=== PATIENT | male | born 1990 | race Caucasian/White ===

== ENCOUNTER → 2021-04-26 10:55 | Outpatient (CLI) | payer OTHER, SELFPAY | PROVIDERS: PCP Family Medicine; Visit Provider Family Medicine | DX: R06.81 Apnea, not elsewhere classified (principal); R06.83 Snoring; G47.19 Other hypersomnia; Z68.31 Body mass index [BMI] 31.0-31.9, adult | CPT/HCPCS: 95806 ==

== ENCOUNTER → 2021-05-13 14:24 | Outpatient (CLI) | payer OTHER, SELFPAY | PROVIDERS: Visit Provider Internal Medicine Gastroenterology | DX: Z01.812 Encounter for preprocedural laboratory examination (principal); Z20.822 Contact with and (suspected) exposure to COVID-19; Z13.810 Encounter for screening for upper gastrointestinal disorder | CPT/HCPCS: C9803; U0003; U0005 ==

== ENCOUNTER 2021-05-16 10:13 | Day surgery (SDC) | payer OTHER, SELFPAY ==
[2021-05-13 12:38] VITALS: BMI 30.5
[2021-05-16 10:33] VITALS: BP 143/97; PULSE 79; RESP 18; TEMP 36.7; O2SAT 97
--- NOTE | 2021-05-16 10:47 | P.PN_ITS ---
[facility] Anesthesia Checklist - Patient Identification Patient Identification: Verbal (Name & ) - Structural Data Admitted From: Home Planned Operative Procedure/s: EGD Consent for Planned Operative Procedure(s) Verified: Yes Verified Documents: Surgical Consent - NPO Status Verified Time NPO: 00:00 - Chart Verification Results Verified: None - Anesthesia Plan Anesthesia Risk discussed: Yes ASA Class: II Anesthesia Type: General [facility] History Medical History: Reports:: Gastroesophageal Reflux Disease(GERD) Denies:: Cancer, Diabetes Mellitus Type 1, Diabetes Mellitus Type 2, MRSA, Seizures *Have you ever received a pneumonia vaccine?: No *Have you received a flu vaccine this season?: No Other Medical History: Reports: Other Anesthesia experience/problems:: No issues Other Surgeries: Yes: No Previous Surgery Amputation: No - *Social History Last grade of school completed: Some college Smoking Status: Current every day smoker Tobacco Type: cigarettes Alcohol Intake: current Alcohol Intake Frequency:: holidays/special occasions only Substance Use Type: denies use *Occupational Status:: employed Housing: house Household Members: spouse, children *Travel in the last 8 weeks: None Family Hx:: Cancer
--- NOTE | 2021-05-16 12:36 | P.PCN_ITS ---
[facility] Procedure Note Procedure Note:: Upper Endoscopy Procedure Report: Esophagogastroduodenoscopy with cold biopsies and TTS balloon dilation Endoscopost: Juan C Frazier II, MD Referring Physician: Farheen Chavez MD Date of Procedure: May 16, 2021 Equipment: Olympus GIF 190 standard upper endoscope Sedation: MAC sedation Indications: Mr. Sandoval is a 30-year-old gentleman with intractable heartburn and reflux. If he misses 1 dose of omeprazole 40 mg by mouth daily, he will have more severe symptoms. He has had dyspepsia with epigastric abdominal discomfort as well as chest pain. He reports some bloating and early satiety. He has some gassiness and minor belching. He reports normal bowel function. He has had no cardiac evaluation. He does have some dysphagia to solids. He does smoke tobacco and is trying to quit. Procedure: Prior to the procedure, a history and physical exam was performed, and patient's medications and allergies were reviewed. The risks, benefits and alternatives of the sedation and procedure were discussed with the patient. All questions were answered and informed consent was obtained. The patient was brought to the procedure room. Patient identification and proposed procedure were verified by the physician and the nurse. The patient was placed in a left lateral decubitus position and the scope was passed under direct vision. Throughout the procedure, the patient's blood pressure, pulse, and oxygen saturations were monitored continuously. The upper GI endoscopy was accomplished without difficulty. The patient tolerated the procedure well. Findings: The scope was passed directly into the upper esophagus and advanced to the third portion of the duodenum. The post bulbar duodenum and duodenal bulb were normal with normal mucosa and conniventes. There was mild duodenal lymphoid stasis. The scope was withdrawn through a normal duodenal bulb and pylorus into the stomach. There was bile reflux with mild linear reactive gastropathy of the antrum and body. The remainder of the fundus of the stomach was grossly normal. Upon retroflexion there was no hiatal hernia. 2 biopsies were taken in the antrum and along the lesser curvature for histology to rule out gastritis and/or H pylori. The scope was then withdrawn into the esophagus. There was a serrated Z-line but no evidence of reflux esophagitis or Perez's. There was no Schatzki's ring. There were tertiary contractions and evidence of moderate esophageal dysmotility. The entire esophagus was dilated to 60 Croatian/20 mm with a TTS hydrostatic balloon. There was some resistance at the cricopharyngeus (i.e. cricopharyngeal spasm). The remainder of the esophageal mucosa was normal. Impression: 1. Cricopharyngeal spasm status post dilation to 20 mm 2. Nonerosive GERD with moderate esophageal dysmotility 3. Bile reflux with mild linear reactive gastropathy Plan: I will follow-up the biopsies. I do feel that the patient has functional dyspepsia and functional GERD with esophageal dyskinesia (esophageal spasm). I do feel that this is driven by gas pressure gradients. We will discuss additi onal dietary measures and treatment options.
[2021-05-16 12:39] VITALS: BP 165/78; PULSE 95; RESP 18; TEMP 36.2; O2SAT 96
[2021-05-16 12:49] VITALS: BP 129/91; PULSE 94; RESP 18; O2SAT 96
[2021-05-16 12:59] VITALS: BP 153/84; PULSE 90; RESP 18; O2SAT 96
[2021-05-16 13:09] VITALS: BP 126/78; PULSE 84; RESP 16; TEMP 36.6; O2SAT 97
[2021-05-16 14:02] VITALS: O2SAT 97
== END 2021-05-16 13:10 | disposition home or self-care (01) ==
LOC: OUTP 10:16
PROVIDERS: PCP Family Medicine; Visit Provider Internal Medicine Gastroenterology
PROC: 0DJ08ZZ Inspection of Upper Intestinal Tract, Via Natural or Artificial Opening Endoscopic (ICD-10-PCS; CPT 43235; principal; 2021-05-16 11:30)
DX: K30 Functional dyspepsia (principal); K21.9 Gastro-esophageal reflux disease without esophagitis; J39.2 Other diseases of pharynx; K22.4 Dyskinesia of esophagus; K31.9 Disease of stomach and duodenum, unspecified; Z72.0 Tobacco use; Z80.9 Family history of malignant neoplasm, unspecified
CPT/HCPCS: 43239; 43249; C1726; J2704

== ENCOUNTER 2022-11-21 09:08 | Emergency (ER) | payer OTHER, SELFPAY ==
[2022-11-21] VITALS (9 sets, daily range): BP systolic 109–135; BP diastolic 76–91; PULSE 72–96; RESP 15–19; TEMP 36.7–36.9; O2SAT 95–98; BMI 29.5
--- NOTE | 2022-11-21 09:08 | ECG_ITS ---
APPROVED REPORT Exam: Resting ECG HR:93 bpm ECG Measurements Heart Rate 93 AXES ND 149 P 37 QRSd 105 QRS 35 QT 353 T 2 QTc 404 Conclusion SINUS RHYTHM NONSPECIFIC T-WAVE ABNORMALITY BORDERLINE ECG UNCONFIRMED REPORT Electronically signed by : Kushal Benito MD 11/22/2022 01:41:52
--- NOTE | 2022-11-21 09:11 | XR_ITS ---
FINAL REPORT CLINICAL HISTORY: chest pain and SOA FINDINGS: PA and lateral views of the chest are obtained. There is no prior exam for comparison. The cardiac and mediastinal silhouettes are within normal limits. The lungs are clear. There is no pleural effusion, pneumothorax. There is an age indeterminate T12 compression fracture. IMPRESSION: No radiographic evidence of acute cardiac or pulmonary disease. Reviewed, Interpreted and Dictated by Angelita Webster MD Transcribed by Amrita Saucedo Authenticated and [facility]
--- NOTE | 2022-11-21 09:21 | HMH.EDGENADL ---
Discharge Plan Disposition Patient Disposition: Home, Self-Care Condition: Good Prescriptions Prescriptions: No Action fexofenadine [Maryellen Allergy] 60 mg tablet 60 mg PO BID ipratropium bromide 21 mcg (0.03 %) spray,non-aerosol 2 spray intranasal BID albuterol sulfate 90 mcg/actuation HFA aerosol inhaler 2 puff inhalation PRN azelastine 137 mcg (0.1 %) aerosol,spray 1 spray INTRANASAL BID fluticasone propionate 50 mcg/actuation spray,suspension 1 spray INTRANASAL BID omeprazole 40 mg capsule,delayed release(DR/EC) 40 mg PO DAILY Referrals Follow up/Referrals: Julieta Vasquez APRN [Nurse Practitioner] - See instructions Jose L Wilkinson MD [Staff Physician] - See instructions Provider,MD Tevin [Primary Care Provider] - See instructions Activity Restrictions/Add. Instructions Additional Instructions/Restrictions: Additional instructions for CHEST PAIN: See cardiology, Dr. Wilkinson, as soon as possible for further evaluation. Call for appointment. Return immediately if worsening chest pain, vomiting, shortness of breath, fever, coughing of blood. Follow-up with Julieta Vasquez for behavioral medicine evaluation Clinical Impressions Clinical Impression: Chest pain, Acute dyspnea Instructions Patient Instructions: DI for Shortness of Breath, DI for Chest Pain Discharge ED Provider: Jon Alfonso General Adult HPI General Chief complaint: Chest Pain Stated complaint: chest pain Time Seen by Provider: 11/21/22 09:54 Mode of Arrival: Ambulatory Source of Information: Patient Limitations: No Limitations Description of Symptoms (Recalled from ER Triage Doc. by RN): pt presents to ED c/o chest paint that has been intermittent x 1 week. pt denies the pain radiating. pt reports SOA. History of Present Illness HPI narrative: Patient's chief complaint to me is that he is having problems breathing. States that for the past week he has dyspnea, particular with exertion. Usually lasts about 15 minutes. Associated with a vague discomfort in his left upper anterior chest without radiation. States he cannot tell whether he gets sweaty with the episodes because he is already sweating at work when the episodes occur. He has felt nauseated a couple of times. He says he thinks his symptoms might be related to depression and anxiety and would like a referral for evaluation for that as well He does not have any known cardiac conditions. He does not have hypertension, diabetes, or hyperlipidemia. No known family history of heart disease. He is a smoker. He has sleep apnea and uses CPAP at night. No prior cardiac work-up. Related Data Home Medications Medication Instructions Recorded Confirmed azelastine 137 mcg (0.1 %) nasal 1 spray intranasal BID allergies 04/26/21 08/31/22 spray aerosol fluticasone propionate 50 1 spray intranasal BID allergies 04/26/21 08/31/22 mcg/actuation nasal spray,suspension omeprazole 40 mg capsule,delayed 40 mg PO DAILY GERD 04/26/21 08/31/22 release fexofenadine 60 mg tablet (Maryellen 60 mg PO BID allergies 05/11/21 08/31/22 Allergy) albuterol sulfate 90 mcg/actuation 2 puff inhalation PRN 07/24/22 08/31/22 aerosol inhaler ipratropium bromide 21 mcg (0.03 2 spray intranasal BID 07/24/22 08/31/22 %) nasal spray Allergies Allergy/AdvReac Type Severity Reaction Status Date / Time No Known Allergies Allergy Verified 08/31/22 09:21 [facility] Disclaimer: The information contained in this section may have been updated after the patient was seen, as this information can be updated by other users. 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
--- NOTE | 2022-11-21 09:30 | PC.NURSE ---
pt going to radiology at this time.
[2022-11-21 09:31] LABS: Basophils # 0.1 K/mm3 (0-0.2); Basophils % 1.7 % (0.1-2.0); Eosinophils # 0.2 K/mm3 (0.0-0.4); Eosinophils % 2.6 % (0.1-12.0); Hematocrit 50.8 % (42.0-52.0); Hemoglobin 17.1 g/dL (14.1-18.0); Lymphocytes # 2.2 K/mm3 (0.7-4.5); Lymphocytes % 30.1 % (10-50); Mean Corpuscular HGB Conc 33.7 g/dL (31.8-35.4); Mean Corpuscular Hemoglobin 29.6 pg (27.0-31.2); Mean Corpuscular Volume 87.9 fl (80-94); Mean Platelet Volume 6.9 fl (7.4-10.4); Monocytes # 0.5 K/mm3 (0.1-1.0); Monocytes % 6.5 % (1.7-9.3); Neutrophils # 4.3 K/mm3 (1.8-7.8); Neutrophils % 59.1 % (37.0-80.0); Platelet Count 291 K/mm3 (142-424); Red Blood Count 5.78 M/mm3 (4.60-6.20); Red Cell Distribution Width 13.2 % (11.5-17.5); White Blood Count 7.3 K/mm3 (4.8-10.8)
--- NOTE | 2022-11-21 09:34 | PC.NURSE ---
pt back to room from radiology
[2022-11-21 09:44] LABS: Alanine Aminotransferase 39 U/L (12-78); Albumin Level 4.8 g/dl (3.5-5.0); Albumin/Globulin Ratio 1.7 (1.1-1.8); Alkaline Phosphatase 69 U/L (38-126); Anion Gap 12.9 mEq/L (5-15); Aspartate Amino Transferase 32 U/L (17-59); Bilirubin,Total 0.8 mg/dl (0.2-1.3); Blood Urea Nitrogen 16 mg/dl (9-20); Carbon Dioxide 27 mmol/L (22.0-30.0); Chloride 103 mmol/L (98-107); Creatinine Clearance Estimated 134 mL/min (50-200); Estimated Glomerular Filt Rate 86 ml/min (>60); GFR (African American) 103 ML/MIN (>60); Globulin 2.8 g/dL (1.3-3.2); Glucose 109 mg/dl (74-100); Potassium 3.9 mmoL/L (3.5-5.1); Sodium 139 mmol/L (136-145); Total Protein,Serum 7.6 g/dl (6.3-8.2)
[2022-11-21 09:56] LABS: Troponin I < 0.01 ng/ml (0.00-0.034)
--- NOTE | 2022-11-21 10:02 | PC.NURSE ---
Notified lab of D-Dimer add on, spoke to Kenneth
[2022-11-21 10:14] LABS: D-Dimer 0.65 ug/mL (0.0-0.5)
--- NOTE | 2022-11-21 10:15 | PC.NURSE ---
rounded and updated on POC.
--- NOTE | 2022-11-21 10:24 | CT_ITS ---
FINAL REPORT TECHNIQUE: Axial imaging of the chest is obtained after the administration of contrast. 3-D MIP reformatted images were also obtained and reviewed per PE protocol. CLINICAL HISTORY: soa, elev d-dimer FINDINGS: The pulmonary arteries are well filled. There is no evidence of pulmonary embolus. There is no aortic dissection or intimal flap. There is no mediastinal, hilar, or axillary lymphadenopathy. There is evidence of old granulomatous disease. The lungs are otherwise clear. There is no pleural or pericardial effusion. Limited evaluation of the upper abdomen is without acute abnormality. There is no acute osseous abnormality. IMPRESSION: No evidence of pulmonary embolism or aortic dissection. Reviewed, Interpreted and Dictated by Angelita Webster MD Transcribed by Mario Rosenberg Authenticated and [facility]
[2022-11-21 10:55] LABS: NT Pro Brain Natriuretic Pep. < 11.1 pg/mL (0-125)
--- NOTE | 2022-11-21 11:05 | PC.NURSE ---
Pt given pillow and warm blanket.
--- NOTE | 2022-11-21 11:49 | PC.NURSE ---
rounded on patient and updated on POC.
--- NOTE | 2022-11-21 12:21 | PC.NURSE ---
Called radiology regarding scans not being read; they are going to look for preliminary reports at this time
[2022-11-21 13:01] LABS: Troponin I < 0.01 ng/ml (0.00-0.034)
== END 2022-11-21 13:55 | disposition home or self-care (01) ==
PROVIDERS: Emergency Provider Emergency Medicine
DX: R07.89 Other chest pain (principal); R06.02 Shortness of breath; R53.83 Other fatigue
CPT/HCPCS: 36415; 71046; 71275; 80053; 83880; 84484; 85025; 85378; 93005; 99285; Q9967

== ENCOUNTER 2022-12-05 02:53 | Emergency (ER) | payer OTHER, SELFPAY ==
[2022-12-05] VITALS (7 sets, daily range): BP systolic 121–162; BP diastolic 84–95; PULSE 85–99; RESP 15–20; TEMP 36.7–37.1; O2SAT 95–97; BMI 32.5
--- NOTE | 2022-12-05 03:12 | XR_ITS ---
PROCEDURE INFORMATION: Exam: XR Chest Exam date and time: 12/05/2022 3:10 AM Age: 32 years old Clinical indication: Pain; On breathing; Patient HX: Congestion, fever; Additional info: Inspiratory chest pain TECHNIQUE: Imaging protocol: Radiologic exam of the chest. Views: 2 views. COMPARISON: CR XR CHEST 2V 11/21/2022 9:22 AM FINDINGS: Lungs: No consolidation, mass, or pulmonary edema. Pleural spaces: Unremarkable. No pleural effusion. No pneumothorax. Heart/Mediastinum: Unremarkable. No cardiomegaly. Bones/joints: No acute osseous abnormality. Stable old wedge compression fractures of T12 and L1. IMPRESSION: No acute findings.
[2022-12-05 03:15] LABS: Coronavirus 19, PCR Not Detected (NotDetected); Influenza B, PCR Not Detected (NotDetected)
--- NOTE | 2022-12-05 03:18 | PC.NURSE ---
patient gone to RAD at this time.
--- NOTE | 2022-12-05 03:22 | PC.NURSE ---
patient back in room at this time.
[2022-12-05 03:35] LABS: Influenza A, PCR Detected (NotDetected)
--- NOTE | 2022-12-05 06:13 | HMH.EDURI ---
Discharge Plan Disposition Patient Disposition: Home, Self-Care Prescriptions Prescriptions: New oseltamivir [Tamiflu] 75 mg capsule 75 mg PO BID 5 Days Qty: 10 0RF No Action fexofenadine [Maryellen Allergy] 60 mg tablet 60 mg PO BID ipratropium bromide 21 mcg (0.03 %) spray,non-aerosol 2 spray intranasal BID albuterol sulfate 90 mcg/actuation HFA aerosol inhaler 2 puff inhalation PRN azelastine 137 mcg (0.1 %) aerosol,spray 1 spray INTRANASAL BID fluticasone propionate 50 mcg/actuation spray,suspension 1 spray INTRANASAL BID omeprazole 40 mg capsule,delayed release(DR/EC) 40 mg PO DAILY Referrals Follow up/Referrals: Provider,Referral, MD [Primary Care Provider] - See instructions Clinical Impressions Clinical Impression: Influenza Stand Alone Forms Stand Alone Forms: Work/School Release Instructions Patient Instructions: DI for Influenza -- Adult Discharge ED Provider: Guillermo (ED)Kaden URI/Sore Throat HPI General Chief Complaint: Upper Respiratory Infection Stated Complaint: Dizziness,SOA,cough,congestion,runny nose Time Seen by Provider: 12/05/22 06:13 Mode of Arrival: Family Vehicle Source of Information: Patient and Medical Record Limitations: No Limitations Description of Symptoms (Recalled from ER Triage Doc. by RN): 32 YO MALE PRESENTS WITH CC OF VERONICA,BODY ACHES,CHEST CONGESTION, INSPIRATORY PAIN/SOB,RUNNY NOSE/DENIES GI SYMPTOMS ; History of Present Illness HPI Narrative: pt with achey and cough with congestion over the last few days Complaint: cough Onset (ago): day(s) Duration: intermittent Severity: moderate Able to tolerate fluids by mouth: Yes Associated symptoms: denies other symptoms Related Data Home Medications Medication Instructions Recorded Confirmed azelastine 137 mcg (0.1 %) nasal 1 spray intranasal BID allergies 04/26/21 08/31/22 spray aerosol fluticasone propionate 50 1 spray intranasal BID allergies 04/26/21 08/31/22 mcg/actuation nasal spray,suspension omeprazole 40 mg capsule,delayed 40 mg PO DAILY GERD 04/26/21 08/31/22 release fexofenadine 60 mg tablet (Maryellen 60 mg PO BID allergies 05/11/21 08/31/22 Allergy) albuterol sulfate 90 mcg/actuation 2 puff inhalation PRN 07/24/22 08/31/22 aerosol inhaler ipratropium bromide 21 mcg (0.03 2 spray intranasal BID 07/24/22 08/31/22 %) nasal spray Previous Rx's Medication Instructions Recorded oseltamivir 75 mg capsule (Tamiflu) 75 mg PO BID 5 days #10 caps 12/05/22 Allergies Allergy/AdvReac Type Severity Reaction Status Date / Time No Known Allergies Allergy Verified 08/31/22 09:21 [facility] Disclaimer: The information contained in this section may have been updated after the patient was seen, as this information can be updated by other users. Family History (Updated 07/24/22 @ 09:48 by Julieta Gleason) Other Heart attack Stroke Social History Smoking Status: Never smoker alcohol intake: current substance use type: denies use current occupational status: employed Travel in the last 8 weeks: None household members: spouse and children housing: house current occupation: maint ROS Obtained: Yes All systems reviewed & no additional complaints except as documented Physical Exam General General appearance: alert Head Head exam: normocephalic Eye Eye exam: Present PERRL and EOMI ENT ENT exam: Present mucous membranes moist Neck Neck exam: Present trachea midline Respiratory Respiratory exam: Absent respiratory distress Cardiovascular Cardiovascular exam: Present regular rate Extremities Exam Extremities exam: Present full ROM Neurological Exam Neurological exam: Present alert, oriented X3 and CN II-XII intact; Absent motor sensory deficit Psychiatric Psychiatric exam: Present normal affect Skin Skin exam: Absent rash Medical Decision Making Medical Records Medical records reviewed: Yes I rev
== END 2022-12-05 06:23 | disposition home or self-care (01) ==
PROVIDERS: Emergency Provider Emergency Medicine
DX: J10.1 Influenza due to other identified influenza virus with other respiratory manifestations (principal); R06.02 Shortness of breath; R05.9 Cough, unspecified
CPT/HCPCS: 71046; 99283; 99284; C9803; U0003; U0005

== ENCOUNTER → 2023-02-12 10:52 | Outpatient (CLI) | payer OTHER, SELFPAY ==
--- NOTE | 2023-02-12 11:37 | CA_ITS ---
APPROVED REPORT Exam: Exercise Treadmill Technologist: France Hobson, Ht: 5 ft 10 in Wt: 222 lbs BSA: 2.18 m2 HR: 85 bpm BP: 151/90 mmHg Rhythm: NSR Medical History Medications: Flonase,,,,, SyMBICORT,,,,, Albuterol,,,,, Atrovent,,,,, Fexofenadine,,,,, Trelegy Ellipta,,,,, Stress Test Details Test: Ramses HR Resting HR: 88 bpm Max Heart Rate (APMHR): 186 bpm Max HR Achieved: 159 bpm Target HR (85% APMHR): 158 bpm % of APMHR: 85 Recovery HR: 106 bpm HR response to stress: Normal HR response to stress BP Resting BP: 159.0/95.0 mmHg Max BP: 206.0/93.0 mmHg Recovery BP: 153.0/87.0 mmHg BP response to stress: Abnormal hypertensive response to stress. ECG Resting ECG: NSR, non-specific T-wave changes in inferior leads Stress ECG: No change Arrhythmia: None Recovery ECG: No change Recovery Arrhythmia: None Clinical Reason for Termination: Generalized fatigue and dyspnea Exercise duration: 09:46 min Highest Stage Achieved: IV Exercise capacity: 10.1 METs Overall Exercise Capacity for Age: Good Stress ECG Conclusion Max HR: 159 % of PM: 85 Max BP: 206/93 The patient was able to exercise for 9m 46s, achieveing a total of 10.1 METs. He had good exercise capacity compared to age and sex matched peers. He had a normal HR, but an exaggerated BP response, to exercise. The exercise stress test was eventually stopped due to generalized fatigue and dyspnea. He denied any chest pains. At peak stress, there was < 0.[address] depression in the lateral reads, which is likely a normal response to exercise. Conclusion: Normal exercise ECG stress test. Exaggerated (hypertensive) response to exercise was noted. Test Summary REST . . . . . . . Sitting REST . . . . . . . Standing REST 03:53 0.0 0.0 88 . 159/ 95 . . Stage 1 01:00 10.0 1.7 109 . . . . Stage 1 02:00 10.0 1.7 115 . . . . Stage 1 03:00 10.0 1.7 113 . 158/ 98 . . Stage 2 01:00 12.0 2.5 120 . . . . Stage 2 02:00 12.0 2.5 122 . . . . Stage 2 03:00 12.0 2.5 122 . 182/ 96 . . Stage 3 01:00 14.0 3.4 133 . . . . Stage 3 02:00 14.0 3.4 145 . . . . Stage 3 03:00 14.0 3.4 147 . 190/100 . . Stage 4 00:46 16.0 4.2 159 . . . Stop exercise at 09:46 RECOVERY 01:00 0.0 0.0 144 . . . . RECOVERY 02:00 0.0 0.0 128 . . . . RECOVERY 03:00 0.0 0.0 119 . 206/ 93 . . RECOVERY 04:00 0.0 0.0 115 . 206/ 93 . . RECOVERY 05:00 0.0 0.0 109 . 161/ 91 . . RECOVERY 06:00 0.0 0.0 108 . 150/ 96 . . RECOVERY 07:00 0.0 0.0 107 . 153/ 87 . . RECOVERY 07:11 0.0 0.0 106 . 153/ 87 . . Electronically signed by : Alda Bailey, 02/12/2023 19:58:47
[2023-02-12 12:37] LABS: Hemoglobin A1C 5.3 % (4.0-6.0)
[2023-02-12 13:03] LABS: Iron 62 ug/dL (49-181)
[2023-02-12 13:13] LABS: Total Iron Binding Capacity 364 ug/dL (261-462)
[2023-02-12 13:24] LABS: Vitamin B12 > 1000 pg/mL (239-931)
[2023-02-12 13:26] LABS: Free Thyroxine Index 2.4 ug/dL (5.93-13.13); T4 (Thyroxine) 7.2 ug/dl (5.53-11.0); Triiodothryronine (T3) Uptake 34 % (23.5-40.5)
[2023-02-12 13:39] LABS: Thyroid Stimulating Hormone 6.95 uIU/mL (0.465-4.68)
[2023-02-13 10:35] LABS: Thyroid Peroxidase Antibodies 13 IU/mL (0-34)
[2023-02-15 14:18] LABS: Free Testosterone (Direct) 7.8 pg/mL (8.7-25.1); Testosterone, Total, LC/MS 349.3 ng/dL (264.0-916.0)
[2023-02-18 19:10] LABS: 1,25 Dihydroxy Vitamin D 41 pg/mL (.); 1,25-Dihydroxy, Vitamin D-2 <10 pg/mL (.); 1,25-Dihydroxy, Vitamin D-3 41 pg/mL (.)
== END ==
LOC: RT 10:53
PROVIDERS: PCP Internal Medicine; Referring Provider Nurse Practitioner Psychiatric/Mental Health; Visit Provider Nurse Practitioner Family
DX: R06.09 Other forms of dyspnea (principal); R07.9 Chest pain, unspecified; F14.91 Cocaine use, unspecified, in remission; R53.83 Other fatigue; G47.33 Obstructive sleep apnea (adult) (pediatric); E66.9 Obesity, unspecified; Z68.32 Body mass index [BMI] 32.0-32.9, adult; Z79.899 Other long term (current) drug therapy
CPT/HCPCS: 36415; 82607; 82652; 83036; 83540; 83550; 84436; 84443; 84479; 86376; 93017; 93306

== ENCOUNTER → 2023-03-27 15:38 | Outpatient (CLI) | payer OTHER, SELFPAY ==
[2023-03-29 10:54] LABS: Testosterone,Total 336 ng/dL (264-916)
== END ==
LOC: LAB.DROPOF 15:38
PROVIDERS: PCP Physician Assistant; Visit Provider Physician Assistant
DX: R79.89 Other specified abnormal findings of blood chemistry (principal)
CPT/HCPCS: 84403

== ENCOUNTER → 2023-07-16 16:14 | Outpatient (CLI) | payer OTHER, SELFPAY ==
[2023-07-16 16:10] LABS: Basophils % 0.5 % (0.1-2.0); Eosinophils # 0.1 K/mm3 (0.0-0.4); Eosinophils % 1.7 % (0.1-12.0); Hematocrit 46.2 % (42.0-52.0); Hemoglobin 16.2 g/dL (14.1-18.0); Lymphocytes # 2.4 K/mm3 (0.7-4.5); Lymphocytes % 35.2 % (10-50); Mean Corpuscular Hemoglobin 30.2 pg (27.0-31.2); Mean Corpuscular Volume 86.4 fl (80-94); Mean Platelet Volume 7.5 fl (7.4-10.4); Monocytes # 0.6 K/mm3 (0.1-1.0); Monocytes % 8.7 % (1.7-9.3); Neutrophils # 3.7 K/mm3 (1.8-7.8); Neutrophils % 53.8 % (37.0-80.0); Platelet Count 326 K/mm3 (142-424); Red Blood Count 5.35 M/mm3 (4.60-6.20); Red Cell Distribution Width 13.5 % (11.5-17.5); White Blood Count 6.9 K/mm3 (4.8-10.8)
[2023-07-16 16:41] LABS: Alanine Aminotransferase 31 U/L (12-78); Albumin Level 4.6 g/dl (3.5-5.0); Albumin/Globulin Ratio 1.8 (1.1-1.8); Alkaline Phosphatase 67 U/L (38-126); Anion Gap 11.9 mEq/L (5-15); Aspartate Amino Transferase 36 U/L (17-59); Bilirubin,Total 0.6 mg/dl (0.2-1.3); Blood Urea Nitrogen 13 mg/dl (9-20); Calcium 9.3 mg/dl (8.4-10.2); Carbon Dioxide 25 mmol/L (22.0-30.0); Chloride 105 mmol/L (98-107); Cholesterol 258 mg/dl (140-200); Estimated Glomerular Filt Rate 97 ml/min (>60); GFR (African American) 117 ML/MIN (>60); Globulin 2.6 g/dL (1.3-3.2); Glucose 91 mg/dl (74-100); HDL Cholesterol 37 mg/dl (40-60); Potassium 3.9 mmoL/L (3.5-5.1); Sodium 138 mmol/L (136-145); Total Protein,Serum 7.2 g/dl (6.3-8.2); Triglycerides 120 mg/dl (30-150); VLDL Cholesterol 24 mg/dL (0-40)
[2023-07-16 16:52] LABS: Direct LDL Cholesterol 180.57 mg/dL (100-129)
[2023-07-16 17:00] LABS: 25-OH Vitamin D, Total 41.5 ng/mL (30-100)
[2023-07-16 17:12] LABS: Thyroid Stimulating Hormone 1.59 uIU/mL (0.465-4.68)
[2023-07-16 17:31] LABS: Vitamin B12 935 pg/mL (239-931)
== END ==
PROVIDERS: PCP Physician Assistant; Visit Provider Physician Assistant
DX: E03.9 Hypothyroidism, unspecified (principal); R53.83 Other fatigue; Z68.29 Body mass index [BMI] 29.0-29.9, adult
CPT/HCPCS: 80053; 80061; 82306; 82607; 84443; 85025

== ENCOUNTER 2023-09-10 18:10 | Outpatient (CLI) | payer BC, SELFPAY | END 2023-09-10 23:59 | LOC: LAB.DROPOF 18:10 | PROVIDERS: PCP Student in an Organized Health Care Education/Training Program; Visit Provider Student in an Organized Health Care Education/Training Program | DX: J02.9 Acute pharyngitis, unspecified (principal) | CPT/HCPCS: 87070 ==

== ENCOUNTER 2023-09-19 12:40 | Outpatient (CLI) | payer BC, SELFPAY ==
[2023-09-19 13:06] LABS: Basophils % 0.2 % (0.1-2.0); Eosinophils # 0.1 K/mm3 (0.0-0.4); Eosinophils % 0.7 % (0.1-12.0); Hematocrit 48.3 % (42.0-52.0); Hemoglobin 16.2 g/dL (14.1-18.0); Lymphocytes # 4.2 K/mm3 (0.7-4.5); Lymphocytes % 32.5 % (10-50); Mean Corpuscular HGB Conc 33.6 g/dL (31.8-35.4); Mean Corpuscular Hemoglobin 29.6 pg (27.0-31.2); Mean Corpuscular Volume 88.3 fl (80-94); Mean Platelet Volume 6.5 fl (7.4-10.4); Monocytes # 0.9 K/mm3 (0.1-1.0); Monocytes % 7.1 % (1.7-9.3); Neutrophils # 7.6 K/mm3 (1.8-7.8); Neutrophils % 59.4 % (37.0-80.0); Platelet Count 299 K/mm3 (142-424); Red Blood Count 5.47 M/mm3 (4.60-6.20); Red Cell Distribution Width 13.3 % (11.5-17.5); White Blood Count 12.8 K/mm3 (4.8-10.8)
[2023-09-19 13:07] LABS: Chloride 104 mmol/L (98-107); Potassium 3.6 mmoL/L (3.5-5.1); Sodium 140 mmol/L (136-145)
[2023-09-19 13:09] LABS: Bilirubin,Unconjugated 0.2 mg/dL (0.0-1.1); Blood Urea Nitrogen 18 mg/dl (9-20); Estimated Glomerular Filt Rate 76 ml/min (>60); GFR (African American) 92 ML/MIN (>60)
[2023-09-19 13:10] LABS: Alanine Aminotransferase 48 U/L (12-78); Albumin Level 4.7 g/dl (3.5-5.0); Albumin/Globulin Ratio 1.8 (1.1-1.8); Alkaline Phosphatase 107 U/L (38-126); Anion Gap 13.6 mEq/L (5-15); Aspartate Amino Transferase 57 U/L (17-59); Bilirubin,Direct 0.7 mg/dl (0.0-0.4); Bilirubin,Indirect 0.2 mg/dL (0.0-0.9); Bilirubin,Total 0.9 mg/dl (0.2-1.3); Calcium 9.1 mg/dl (8.4-10.2); Carbon Dioxide 26 mmol/L (22.0-30.0); Chol/HDL Ratio 4.9 (1-3.5); Cholesterol 234 mg/dl (140-200); Globulin 2.6 g/dL (1.3-3.2); Glucose 93 mg/dl (74-100); HDL Cholesterol 48 mg/dl (40-60); Total Protein,Serum 7.3 g/dl (6.3-8.2); Triglycerides 177 mg/dl (30-150); VLDL Cholesterol 35 mg/dL (0-40)
[2023-09-19 13:22] LABS: Direct LDL Cholesterol 144.38 mg/dL (100-129)
[2023-09-19 13:42] LABS: Amphetamine/Metha Screen,Urine Positive ng/ml (<1000); Barbiturates Screen,Urine Negative ng/ml (<200)
[2023-09-19 13:43] LABS: Benzodiazepines Screen,Urine Negative ng/ml (<200)
[2023-09-19 13:44] LABS: Cannabinoid Screen,Urine Positive ng/ml (<50)
[2023-09-19 13:45] LABS: Cocaine Screen,Urine Negative ng/ml (<300); Methadone Screen,Urine Negative ng/ml (<300)
[2023-09-19 13:46] LABS: Opiate Screen,Urine Negative ng/ml (<300)
[2023-09-19 13:47] LABS: Phencyclidine Screen,Urine Negative ng/ml (<25)
== END 2023-09-19 23:59 ==
LOC: LAB.DROPOF 12:41
PROVIDERS: PCP Family Medicine; Visit Provider Family Medicine
DX: F90.9 Attention-deficit hyperactivity disorder, unspecified type (principal); F32.9 Major depressive disorder, single episode, unspecified; E78.5 Hyperlipidemia, unspecified; F41.9 Anxiety disorder, unspecified; F41.1 Generalized anxiety disorder; N52.9 Male erectile dysfunction, unspecified; Z12.5 Encounter for screening for malignant neoplasm of prostate; Z79.899 Other long term (current) drug therapy
CPT/HCPCS: 80053; 80061; 80076; 80307; 85025; G0103

== ENCOUNTER 2023-11-08 20:17 | Outpatient (CLI) | payer BC, SELFPAY ==
[2023-11-08 20:16] LABS: Free Thyroxine Index 2.3 ug/dL (5.93-13.13); T4 (Thyroxine) 7.7 ug/dl (5.53-11.0); Triiodothryronine (T3) Uptake 30 % (23.5-40.5)
[2023-11-08 20:30] LABS: Thyroid Stimulating Hormone 1.59 uIU/mL (0.465-4.68)
[2023-11-10 10:11] LABS: Thyroid Peroxidase Antibodies 13 IU/mL (0-34)
[2023-11-12 17:50] LABS: Thyroid Stimulating Immunoglob <0.10 IU/L (0.00-0.55)
== END 2023-11-08 23:59 ==
LOC: LAB.DROPOF 20:17
PROVIDERS: PCP Physician Assistant; Visit Provider Physician Assistant
DX: I10 Essential (primary) hypertension (principal); Z87.891 Personal history of nicotine dependence
CPT/HCPCS: 84436; 84443; 84445; 84479; 86376

== ENCOUNTER 2024-01-22 12:20 | Outpatient (CLI) | payer BC, SELFPAY ==
[2024-01-22 19:02] LABS: Basophils # 0.1 K/mm3 (0-0.2); Basophils % 0.8 % (0.1-2.0); Eosinophils # 0.4 K/mm3 (0.0-0.4); Eosinophils % 5.2 % (0.1-12.0); Hematocrit 46.4 % (42.0-52.0); Hemoglobin 15.8 g/dL (14.1-18.0); Lymphocytes % 42.9 % (10-50); Mean Corpuscular HGB Conc 34.1 g/dL (31.8-35.4); Mean Corpuscular Hemoglobin 30.7 pg (27.0-31.2); Mean Corpuscular Volume 90.1 fl (80-94); Mean Platelet Volume 8.5 fl (7.4-10.4); Monocytes # 0.6 K/mm3 (0.1-1.0); Monocytes % 8.1 % (1.7-9.3); Neutrophils % 42.9 % (37.0-80.0); Platelet Count 276 K/mm3 (142-424); Red Blood Count 5.15 M/mm3 (4.60-6.20); Red Cell Distribution Width 13.7 % (11.5-17.5)
[2024-01-22 19:14] LABS: Alanine Aminotransferase 44 U/L (12-78); Albumin Level 4.3 g/dl (3.5-5.0); Albumin/Globulin Ratio 1.8 (1.1-1.8); Alkaline Phosphatase 73 U/L (38-126); Anion Gap 14.7 mEq/L (5-15); Aspartate Amino Transferase 38 U/L (17-59); Bilirubin,Total 0.4 mg/dl (0.2-1.3); Blood Urea Nitrogen 11 mg/dl (9-20); Calcium 9.5 mg/dl (8.4-10.2); Carbon Dioxide 25 mmol/L (22.0-30.0); Chloride 102 mmol/L (98-107); Chol/HDL Ratio 4.8 (1-3.5); Cholesterol 207 mg/dl (140-200); Estimated Glomerular Filt Rate 96 ml/min (>60); GFR (African American) 116 ML/MIN (>60); Globulin 2.4 g/dL (1.3-3.2); Glucose 135 mg/dl (74-100); HDL Cholesterol 43 mg/dl (40-60); Potassium 3.7 mmoL/L (3.5-5.1); Sodium 138 mmol/L (136-145); Total Protein,Serum 6.7 g/dl (6.3-8.2); Triglycerides 326 mg/dl (30-150); VLDL Cholesterol 65 mg/dL (0-40)
[2024-01-22 19:25] LABS: Direct LDL Cholesterol 116.92 mg/dL (100-129)
[2024-01-22 19:34] LABS: 25-OH Vitamin D, Total 53.3 ng/mL (30-100)
[2024-01-22 19:49] LABS: Thyroid Stimulating Hormone 4.11 uIU/mL (0.465-4.68)
[2024-01-24 11:54] LABS: Hemoglobin A1C 5.6 % (4.0-6.0)
== END 2024-01-22 23:59 | disposition home or self-care (01) ==
LOC: LAB.DROPOF 01-23 12:20
PROVIDERS: PCP Physician Assistant; Visit Provider Physician Assistant
DX: R73.09 Other abnormal glucose (principal); E78.5 Hyperlipidemia, unspecified; I10 Essential (primary) hypertension; E66.9 Obesity, unspecified; Z68.30 Body mass index [BMI] 30.0-30.9, adult; Z79.899 Other long term (current) drug therapy
CPT/HCPCS: 80053; 80061; 82306; 83036; 84443; 85025